=== PATIENT | female | born 1940 | race Caucasian/White ===

== ENCOUNTER 2016-04-27 15:42 | Observation (INO) | payer MEDICARE ==
[~2016-04-27] VITALS: Ht 167.6 cm; Wt 50.0 kg
[~2016-04-27 15:42] MED LIST: AMIO0.1T PO; APIX5TAB PO; LEVO500T3 PO; LEVO75TA3 PO; LOSA50TA PO; PRED10 PO; UMEC1AER INH
[2016-04-27 15:44] VITALS: BP 155/72; PULSE 100; RESP 18; TEMP 98.2; O2SAT 90
[2016-04-27 16:58] VITALS: BP 141/76; PULSE 83; RESP 16; O2SAT 96
[2016-04-27 17:06] VITALS: O2SAT 89
[2016-04-27 17:07] VITALS: O2SAT 95
[2016-04-27] MEDS ORDERED: SODIUM CHLORIDE 0.9% FLUSH 5 ML FLUSH IVF PRN (17:15)
--- NOTE | 2016-04-27 17:20 | PD ---
HPI Chief Complaint: Respiratory Distress Time Seen by Provider: 17:17 Travel History International Travel<30 days: No Contact w/Intl Traveler<30days: No Traveled to known affect area: No History of Present Illness HPI 75-year-old female with previous history of A. fib currently on Eliquis, COPD, presents to the ER today sent in by Dr. lewis because of several weeks' history of coughing and shortness of breath previously treated as COPD, being sent in by Dr. Lewis for evaluation for possible CHF. Patient denies any fevers or any other symptoms. Modifying Factors: None Associated Signs & Symptoms: Coughing and shortness of breath for several weeks , evaluation for CHF Risk Factors: None PFSH Past Medical History Hx Anticoagulant Therapy: Yes Arthritis: No Asthma: Yes Atrial Fibrillation: Yes Autoimmune Disease: No Blood Disorders: No Anxiety: No Depression: No Heart Rhythm Problems: Yes (new onset a-fib) Cancer: Yes (BREAST) Cardiovascular Problems: Yes High Cholesterol: No Chemotherapy: No Chest Pain: No Congestive Heart Failure: Yes COPD: Yes Cerebrovascular Accident: No Diabetes: No Diminished Hearing: No Endocrine: No GERD: No Glaucoma: No Genitourinary: No Headaches: No Hepatitis: No Hiatal Hernia: No Hypertension: No Immune Disorder: No Kidney Stones: No Musculoskeletal: No Neurologic: No Psychiatric: No Reproductive: No Respiratory: Yes Migraines: No Myocardial Infarction: No Radiation Therapy: No Renal Failure: No Seizures: No Sickle Cell Disease: No Sleep Apnea: No Thyroid Disease: No Ulcer: No Tetanus Vaccination: Unknown Influenza Vaccination: Yes ?: Not Dilation and Curettage (D&C): Yes (x2) Past Surgical History Abdominal Surgery: No AICD: No Appendectomy: No Arteriovenous Shunt: No Cardiac Surgery: No Cholecystectomy: No Ear Surgery: No Endocrine Surgery: No Eye Surgery: No Genitourinary Surgery: No Gynecologic Surgery: Yes Insulin Pump: No Joint Replacement: No Oral Surgery: No Pacemaker: No Thoracic Surgery: No Tonsillectomy: Yes Other Surgery: Yes (L MASTECTOMY 2012) Social History Alcohol Use: Yes (SCOTCH DAILY x 48 YEARS) Tobacco Use: No Substance Use: No Allergies-Medications (Allergen,Severity, Reaction): Coded Allergies: Penicillin (Verified Allergy, Severe, EDEMA/SWEELING, 04/27/16) Uncoded Allergies: SEASONAL (Allergy, Mild, 09/06/08) Reported Meds & Prescriptions Reported Meds & Active Scripts Active Reported Ventolin Hfa 18 GM Inh (Albuterol Sulfate) 90 Mcg/Act Aer 1 Puff INH Q4H PRN Levothyroxine (Levothyroxine Sodium) 50 Mcg Tab 50 Mcg PO DAILY Losartan (Losartan Potassium) 50 Mg Tab 50 Mg PO DAILY Eliquis (Apixaban) 5 Mg Tab 5 Mg PO BID Amiodarone (Amiodarone HCl) 100 Mg Tab 100 Mg PO DAILY Anoro Ellipta Inh (Umeclidinium/Vilanterol) 62.5-25 Mcg/Act Aero 1 Puff INH Q4 Review of Systems Except as stated in HPI: all other systems reviewed are Neg Physical Exam Narrative GENERAL: Well-nourished, well-developed pleasant elderly white female patient in no acute distress. SKIN: Warm and dry. HEAD: Normocephalic. EYES: No scleral icterus. No injection or drainage. NECK: Supple, trachea midline. CARDIOVASCULAR: Regular rate and rhythm without murmurs, gallops, or rubs. RESPIRATORY: Breath sounds equal but decreased throughout bilaterally. No accessory muscle use. GASTROINTESTINAL: Abdomen soft, non-tender, nondistended. MUSCULOSKELETAL: No cyanosis, or edema. BACK: Nontender without obvious deformity. No CVA tenderness. Data Data Last Documented VS Vital Signs Date Time Temp Pulse Resp B/P Pulse Ox O2 Delivery O2 Flow Rate FiO2 04/27/16 17:07 95 Nasal Cannula 2 04/27/16 16:59 79 17 04/27/16 16:58 141/76 04/27/16 15:44 98.2 Orders Electrocardiogram (04/27/16 ) Complete Blood Count With Diff (04/27/16 17:01) Comprehensive Metabolic Panel (04/27/16 17:01) B-Type Natriuretic Peptide (04/27/16 17:01) Act Partial Throm Time (Ptt) (04/27/16 17:01) Prothrombin Time / Inr (Pt) (04/27/16 17:01) Ckmb (Isoenzyme) Profile (04/27/16 17:01) Troponin I (04/27/16 17:01) Iv Access Insert/Monitor (04/27/16 17:01) Ecg Monitoring (04/27/16 17:01) Oximetry (04/27/16 17:01) Oxygen Administration (04/27/16 17:01) Chest, Single Ap (04/27/16 17:01) Sodium Chloride 0.9% Flush (Ns Flush) (04/27/16 17:15) D-Dimer (04/27/16 17:20) Furosemide Inj (Lasix Inj) (04/27/16 18:45) Admit Order (Ed Use Only) (04/27/16 19:10) Labs Laboratory Tests Test 04/27/16 17:20 White Blood Count 5.9 TH/MM3 Red Blood Count 4.51 MIL/MM3 Hemoglobin 13.5 GM/DL Hematocrit 40.5 % Mean Corpuscular Volume 89.8 FL Mean Corpuscular Hemoglobin 29.9 PG Mean Corpuscular Hemoglobin 33.3 % Concent Red Cell Distribution Width 16.7 % Platelet Count 261 TH/MM3 Mean Platelet Volume 8.5 FL Neutrophils (%) (Auto) 81.1 % Lymphocytes (%) (Auto) 11.7 % Monocytes (%) (Auto) 6.7 % Eosinophils (%) (Auto) 0.0 % Basophils (%) (Auto) 0.5 % Neutrophils # (Auto) 4.8 TH/MM3 Lymphocytes # (Auto) 0.7 TH/MM3 Monocytes # (Auto) 0.4 TH/MM3 Eosinophils # (Auto) 0.0 TH/MM3 Basophils # (Auto) 0.0 TH/MM3 CBC Comment DIFF FINAL Differential Comment Prothrombin Time 12.0 SEC Prothromb Time International 1.1 RATIO Ratio Activated Partial 29.5 SEC Thromboplast Time D-Dimer Quantitative (PE/DVT) 0.21 MG/L FEU Sodium Level 141 MEQ/L Potassium Level 4.2 MEQ/L Chloride Level 105 MEQ/L Carbon Dioxide Level 27.6 MEQ/L Anion Gap 8 MEQ/L Blood Urea Nitrogen 15 MG/DL Creatinine 0.81 MG/DL Estimat Glomerular Filtration 69 ML/MIN Rate Random Glucose 136 MG/DL Calcium Level 8.6 MG/DL Total Bilirubin 1.1 MG/DL Aspartate Amino Transf 15 U/L (AST/SGOT) Alanine Aminotransferase 30 U/L (ALT/SGPT) Alkaline Phosphatase 73 U/L Total Creatine Kinase 31 U/L Troponin I 0.02 NG/ML B-Type Natriuretic Peptide 604 PG/ML Total Protein 6.4 GM/DL Albumin 3.1 GM/DL MDM Medical Decision Making Medical Screen Exam Complete: Yes Emergency Medical Condition: Yes Medical Record Reviewed: Yes Interpretation(s) EKG shows A. fib at a rate of 85 bpm with no signs of acute ST-T changes. Laboratory Tests Test 04/27/16 17:20 Neutrophils (%) (Auto) 81.1 % (16.0-70.0) Lymphocytes # (Auto) 0.7 TH/MM3 (1.0-4.8) Prothrombin Time 12.0 SEC (9.8-11.6) Estimat Glomerular Filtration 69 ML/MIN (>89) Rate Random Glucose 136 MG/DL (74-106) Total Bilirubin 1.1 MG/DL (0.2-1.0) B-Type Natriuretic Peptide 604 PG/ML (0-100) Albumin 3.1 GM/DL (3.4-5.0) Last 24 hours Impressions Chest X-Ray 04/27/16 1701 Signed Impressions: Service Date/Time: Wednesday, April 27, 2016 17:03 - CONCLUSION: 1. Small left pleural effusion and a tiny right pleural effusion. 2. Bibasilar patchiness consistent with atelectasis, scarring and/or mild infiltrates. 3. Mild cardiomegaly. 4. Degenerative changes and scoliosis of the thoracolumbar spine. Abraham Corbett MD Differential Diagnosis Coughing, shortness of breathCOPD exacerbation versus pneumonia versus CHF Narrative Course Chest x-ray shows signs of CHF and BNP is elevated. Patient was given Lasix in the ER. Case was discussed with Dr. Driscoll for admission for further treatment here Diagnosis Primary Impression: New onset of congestive heart failure Admitting Information Admitting Physician Requests: it Gosia Reid MD Apr 27, 2016 17:19
--- NOTE | 2016-04-27 17:28 | RADRPT ---
EXAM DATE/TIME: 04/27/2016 17:03 [facility] COMPARISON: CHEST PA & LAT, March 28, 2016, 12:22. INDICATIONS : Shortness of breath. MEDICAL HISTORY : Atrial fibrillation. Asthma. SURGICAL HISTORY : Mastectomy, bilateral. ENCOUNTER: Initial ACUITY: 1 day PAIN SCORE: 0/10 LOCATION: Bilateral chest FINDINGS: There is a small left pleural effusion and a tiny right pleural effusion. Bibasilar patchiness is no theresa consistent with atelectasis, scarring and/or mild infiltrates. The heart is mildly prominent. D egenerative changes and scoliosis of the thoracolumbar spine are noted. CONCLUSION: 1. Small left pleural effusion and a tiny right pleural effusion. 2. Bibasilar patchiness consistent with atelectasis, scarring and/or mild infiltrates. 3. Mild cardiomegaly. 4. Degenerative changes and scoliosis of the thoracolumbar spine. Abraham Corbett MD on April 27, 2016 at 17:19 Board Certified Radiologist. This report was verified electronically.
[2016-04-27 17:33] LABS: AUTOMATED NEUTROPHIL # 4.8 TH/MM3 (1.8-7.7); BASOPHIL % 0.5 % (0.0-2.0); HEMATOCRIT 40.5 % (35.0-46.0); HEMO FLAGS DIFF FINAL; LYMPH % 11.7 % (9.0-44.0); LYMPHOCYTE # 0.7 TH/MM3 (1.0-4.8); MEAN CELL VOLUME 89.8 FL (80.0-100.0); MEAN CORPUSCULAR HEMOGLOBIN 29.9 PG (27.0-34.0); MEAN CORPUSCULAR HGB CONC 33.3 % (32.0-36.0); MONO % 6.7 % (0.0-8.0); NEUT % 81.1 % (16.0-70.0); PLATELET COUNT 261 TH/MM3 (150-450); RED BLOOD COUNT 4.51 MIL/MM3 (4.00-5.30); RED CELL DISTRIBUTION WIDTH 16.7 % (11.6-17.2); WHITE BLOOD COUNT 5.9 TH/MM3 (4.0-11.0)
[2016-04-27 17:44] LABS: APTT (PATIENT) 29.5 SEC (24.3-30.1); INTERNATIONAL NORMALIZED RATIO 1.1 RATIO
[2016-04-27] MEDS ORDERED: VENTAER INH (17:46)
[2016-04-27] MEDS ORDERED: LEVO50TA4 PO (17:46)
[2016-04-27 18:02] LABS: ANION GAP 8 MEQ/L (5-15); AST (GOT) 15 U/L (15-37); BICARBONATE 27.6 MEQ/L (21.0-32.0); BLOOD UREA NITROGEN 15 MG/DL (7-18); CHLORIDE 105 MEQ/L (98-107); GLOMERULAR FILTRATION RATE 69 ML/MIN (>89); POTASSIUM 4.2 MEQ/L (3.5-5.1); SODIUM (NA) 141 MEQ/L (136-145)
[2016-04-27 18:25] LABS: ALKALINE PHOSPHATASE 73 U/L (45-117); ALT (GPT) 30 U/L (10-53); CREATINE KINASE 31 U/L (26-192); TOTAL BILIRUBIN ADULT 1.1 MG/DL (0.2-1.0)
[2016-04-27] MEDS ORDERED: FUROSEMIDE 40 MG/4 ML VIAL IV PUSH ONE (18:45)
[2016-04-27] MEDS ORDERED: NALOXONE HCL 0.4 MG/ML AMP IV PRN (19:30)
[2016-04-27] MEDS ORDERED: SODIUM CHLORIDE 0.9% FLUSH 5 ML FLUSH FLUSH PRN (19:30)
[2016-04-27] MEDS ORDERED: RESP: ALBUTEROL 2.5 MG/IPRATROPIUM 0.5 MG NEB (PRN) NEB (19:45)
[2016-04-27 20:08] VITALS: BP 131/104; PULSE 79; RESP 18; O2SAT 96
[2016-04-27] MEDS: SODIUM CHLORIDE 0.9% FLUSH 5 ML FLUSH FLUSH SCH (21:05)
[2016-04-27 21:55] VITALS: BP 154/78; PULSE 87; RESP 21; TEMP 98.4; O2SAT 97
--- NOTE | 2016-04-27 23:19 | HHI.HP ---
[facility] Valdemar Kinney M.D. Admission Diagnosis CHF exacerbation Diagnoses: (1) Shortness of breath (2) CHF (congestive heart failure) (3) COPD exacerbation Chief Complaint: Shortness of breath x 5 weeks, cough x 3 weeks; not improving despite treatment Travel History International Travel<30 Days: No Contact w/Intl Traveler <30 Da: No Traveled to Known Affected Are: No History of Present Illness Mrs. Alvarez is a 75 year-old female with a past medical history of COPD, hypothyroidism, hypertension, atrial fibrillation on Eliquis, asthma and breast CA who presents to the ER on advice of pharmaceutical service representative Dr. Lewis for shortness of breath and cough for evaluation of possible CHF. Chest x-ray shows small left pleural effusion and a tiny right pleural effusion. Bibasilar patchiness consistent with atelectasis, scarring and/or mild infiltrates. Mild cardiomegaly. Degenerative changes and scoliosis of the thoracolumbar spine. BNP is elevated at 604. D-dimer within normal parameters at 0.21. The patient is seen in the CDU. She states that she's been experiencing shortness of breath for 5 weeks and minimally productive cough with very little phlegm over the past 3 weeks. She denies any pink sputum or fever. She states that she has taken Mucinex and Robitussin as prescribed by her pharmaceutical service representative Dr. Lewis with no improvement in symptoms. She has also taken prednisone as an outpatient and 2 rounds of antibiotics with the last one occurring around April 06 or . She's been using her albuterol nebulizer every 4 hours, again, with no improvement in symptoms. She states that she developed ankle swelling yesterday that has resolved with Lasix given in ER and has also been experiencing orthopnea and paroxysmal nocturnal dyspnea. She states that Dr. Kidd is her lay out and detail drafter and he is doing echocardiograms every 6 months for "leaky valve". She denies any history of congestive heart failure, hypertension , cardiac stents, diabetes mellitus, liver or kidney problems, DVT, CVA, PE, seizures. She does acknowledge history of thyroid dysfunction. She denies being placed on Lasix or any "water pills". She reports increased urine output since receiving Lasix in the ER. Her most recent pulmonary function test in her EMR was 10/15/2014 and revealed moderately severe obstructive ventilatory defect with hyperinflation and reduction in diffusion consistent with emphysema and some improvement noted post bronchodilator. Airway resistance is increased on this study. EF is noted at 72% on echocardiogram in EMR from 2008 with small hemodynamically insignificant pericardial effusion, mild left atrial enlargement, mild mitral regurgitation, mild tricuspid regurgitation. . Review of Systems Constitutional: COMPLAINS OF: Fatigue, DENIES: Fever Respiratory: COMPLAINS OF: Cough, Sputum production (minimal), Shortness of breath, DENIES: Hemoptysis Cardiovascular: COMPLAINS OF: Dyspnea on Exertion, PND, Lower Extremity Edema Neurologic: DENIES: Localized weakness, Seizures Other All other systems are reviewed and are otherwise negative . Past Family Social History Past Medical History COPD Atrial fibrillation Asthma Breast CA left mastectomy 2012 Hypothyroidism Hypertension . Past Surgical History D&C x 2 Left mastectomy 2013 Tonsillectomy . Reported Medications Reported Meds & Active Scripts Active Reported Ventolin Hfa 18 GM Inh (Albuterol Sulfate) 90 Mcg/Act Aer 1 Puff INH Q4H PRN Levothyroxine (Levothyroxine Sodium) 50 Mcg Tab 50 Mcg PO DAILY Losartan (Losartan Potassium) 50 Mg Tab 50 Mg PO DAILY Eliquis (Apixaban) 5 Mg Tab 5 Mg PO BID Amiodarone (Amiodarone HCl) 100 Mg Tab 100 Mg PO DAILY Anoro Ellipta Inh (Umeclidinium/Vilanterol) 62.5-25 Mcg/Act Aero 1 Puff INH Q4 Allergies: Coded Allergies: Penicillin (Verified Allergy, Severe, EDEMA/SWEELING, 04/27/16) Uncoded Allergies: SEASONAL (Allergy, Mild, 09/06/08) Active Ordered Medications Current Medications IV Flush (NS Flush) 2 ml UNSCH PRN IVF FLUSH AFTER USING IV ACCESS; Start at 17:15; Stop 04/27/16 at 19:49; Status DC Furosemide (Lasix Inj) 40 mg ONCE ONCE IV PUSH Last administered on 04/27/16t 20:07; Start 04/27/16 at 18:45; Stop 04/27/16 at 18:46; Status DC IV Flush (NS Flush) 2 ml UNSCH PRN FLUSH FLUSH AFTER USING IV ACCESS; Start 04/27/16 at 19:30 IV Flush (NS Flush) 2 ml BID FLUSH Last administered on 04/27/16t 21:05; Start 04/27/16 at 21:00 Naloxone HCl (Narcan Inj) 0.4 mg UNSCH PRN IV SEE LABEL COMMENTS; Start at 19:30 Albuterol/ Ipratropium (Duoneb Neb) 1 ampule Q4HR NEB PRN NEB dyspnea; Start at 19:45 . Family History Father with emphysema Mother in 50's; cause unknown to patient Social History Alcohol: occasional Tobacco: quit smoking age 32 y/o . Physical Exam Vital Signs Vital Signs Date Time Temp Pulse Resp B/P Pulse Ox O2 Delivery O2 Flow Rate FiO2 04/27/16 21:55 98.4 87 21 154/78 97 04/27/16 20:08 79 18 131/104 96 Nasal Cannula 2 04/27/16 17:07 95 Nasal Cannula 2 04/27/16 17:06 89 Room Air 04/27/16 16:59 79 17 95 Nasal Cannula 2 04/27/16 16:58 83 16 141/76 96 Room Air 04/27/16 15:44 98.2 100 18 155/72 90 Room Air Physical Exam GENERAL: This is a pleasant elderly female patient, in no apparent distress. SKIN: No rashes or lesions. Cool and dry. Some bruising on right marcano. HEAD: Atraumatic. Normocephalic. EYES: No scleral icterus. No injection or drainage. ENT: Nose without bleeding, purulent drainage. NECK: Trachea midline. No JVD or lymphadenopathy. CARDIOVASCULAR: Regular rate and rhythm without murmurs, gallops, or rubs. RESPIRATORY: Clear to auscultation. Breath sounds equal bilaterally. No wheezes , rales, or rhonchi. GASTROINTESTINAL: Abdomen soft, non-tender, nondistended. No guarding. MUSCULOSKELETAL: Extremities without clubbing, cyanosis, or edema. No calf tenderness. NEUROLOGICAL: Awake and alert. Motor and sensory grossly within normal limits. Normal speech. . Laboratory Laboratory Tests Test 04/27/16 17:20 White Blood Count 5.9 Red Blood Count 4.51 Hemoglobin 13.5 Hematocrit 40.5 Mean Corpuscular Volume 89.8 Mean Corpuscular Hemoglobin 29.9 Mean Corpuscular Hemoglobin 33.3 Concent Red Cell Distribution Width 16.7 Platelet Count 261 Mean Platelet Volume 8.5 Neutrophils (%) (Auto) 81.1 Lymphocytes (%) (Auto) 11.7 Monocytes (%) (Auto) 6.7 Eosinophils (%) (Auto) 0.0 Basophils (%) (Auto) 0.5 Neutrophils # (Auto) 4.8 Lymphocytes # (Auto) 0.7 Monocytes # (Auto) 0.4 Eosinophils # (Auto) 0.0 Basophils # (Auto) 0.0 CBC Comment DIFF FINAL Differential Comment Prothrombin Time 12.0 Prothromb Time International 1.1 Ratio Activated Partial 29.5 Thromboplast Time D-Dimer Quantitative (PE/DVT) 0.21 Sodium Level 141 Potassium Level 4.2 Chloride Level 105 Carbon Dioxide Level 27.6 Anion Gap 8 Blood Urea Nitrogen 15 Creatinine 0.81 Estimat Glomerular Filtration 69 Rate Random Glucose 136 Calcium Level 8.6 Total Bilirubin 1.1 Aspartate Amino Transf 15 (AST/SGOT) Alanine Aminotransferase 30 (ALT/SGPT) Alkaline Phosphatase 73 Total Creatine Kinase 31 Troponin I 0.02 B-Type Natriuretic Peptide 604 Total Protein 6.4 Albumin 3.1 Result Diagram: 04/27/16 1720 04/27/16 1720 Imaging Last Impressions Chest X-Ray 04/27/16 1701 Signed Impressions: Service Date/Time: Wednesday, April 27, 2016 17:03 - CONCLUSION: 1. Small left pleural effusion and a tiny right pleural effusion. 2. Bibasilar patchiness consistent with atelectasis, scarring and/or mild infiltrates. 3. Mild cardiomegaly. 4. Degenerative changes and scoliosis of the thoracolumbar spine. Abraham Corbett MD . Assessment and Plan Problem List: (1) Shortness of breath ICD Code: R06.02 Status: Acute (2) CHF (congestive heart failure) ICD Code: I50.9 Status: Acute (3) COPD exacerbation ICD Code: J44.1 Status: Acute Assessment and Plan Mrs. Alvarez is a 75 year-old female with a past medical history of COPD, hypothyroidism, hypertension, atrial fibrillation on Eliquis, asthma and breast CA who presents to the ER on advice of pharmaceutical service representative Dr. Lewis for shortness of breath and cough for evaluation of possible CHF. Chest x-ray shows small left pleural effusion and a tiny right pleural effusion. Bibasilar patchiness consistent with atelectasis, scarring and/or mild infiltrates. Mild cardiomegaly. Degenerative changes and scoliosis of the thoracolumbar spine. BNP is elevated at 604. D-dimer within normal parameters at 0.21. Shortness of breath - COPD exacerbation vs CHF vs valvular heart disease vs amiodarone induced pulmonary fibrosis vs pneumonia - Consult patient's lay out and detail drafter Dr. Kidd - Consult patient's pharmaceutical service representative Dr. Lewis - 2 D echocardiogram to assess heart structure and function - Rule out ACS with serial cardiac enzymes and EKGs - Continuous cardiac telemetry - Heart healthy diet - Strict I and Os - Vital signs q4h - PT to maintain strength COPD - Duonebulizers q4h PRN dyspnea - Continue home COPD medications DVT prophylaxis - continue home Eliquis Written by Christie Barrera, acting as scribe for Dr. Driscoll on 04/27/16 at 22:45. The documentation accurately reflects the work performed [id number] by me on at 2245 Discussed Condition With patient and ER physician Problem Qualifiers (1) CHF (congestive heart failure): Qualified Code: I50.33 - Acute on chronic diastolic congestive heart failure Christie Barrera Apr 27, 2016 23:18 Abe Driscoll MD Apr 30, 2016 08:18
[2016-04-28] VITALS (8 sets, daily range): BP systolic 129–173; BP diastolic 61–87; PULSE 65–87; RESP 18–22; TEMP 97.3–98.7; O2SAT 92–98
[2016-04-28 05:47] LABS: AUTOMATED NEUTROPHIL # 3.5 TH/MM3 (1.8-7.7); BASOPHIL # 0.1 TH/MM3 (0-0.2); BASOPHIL % 1.2 % (0.0-2.0); EOSINOPHIL # 0.1 TH/MM3 (0-0.4); EOSINOPHIL % 1.2 % (0.0-4.0); HEMATOCRIT 38.5 % (35.0-46.0); HEMO FLAGS DIFF FINAL; LYMPH % 19.8 % (9.0-44.0); MEAN CELL VOLUME 89.2 FL (80.0-100.0); MEAN CORPUSCULAR HEMOGLOBIN 29.9 PG (27.0-34.0); MEAN CORPUSCULAR HGB CONC 33.5 % (32.0-36.0); MONO % 11.5 % (0.0-8.0); NEUT % 66.3 % (16.0-70.0); PLATELET COUNT 242 TH/MM3 (150-450); RED BLOOD COUNT 4.32 MIL/MM3 (4.00-5.30); RED CELL DISTRIBUTION WIDTH 16.4 % (11.6-17.2); WHITE BLOOD COUNT 5.2 TH/MM3 (4.0-11.0)
[2016-04-28 06:19] LABS: BICARBONATE 33.3 MEQ/L (21.0-32.0); POTASSIUM 3.7 MEQ/L (3.5-5.1)
[2016-04-28] MEDS: LEVOTHYROXINE SODIUM 50 MCG TAB PO SCH (06:38)
[2016-04-28] MEDS ORDERED: ALUMINUM/MAGNESIUM/SIMETH 30 ML CUP PO PRN (08:30)
[2016-04-28] MEDS ORDERED: CALCIUM CARBONATE 500 MG CHEWABLE TAB CHEW PRN (08:30)
[2016-04-28] MEDS ORDERED: DOCUSATE SODIUM 50 MG/SENNA 8.6 MG TAB PO PRN (08:30)
[2016-04-28] MEDS ORDERED: MAGNESIUM HYDROXIDE SUSP 30 ML CUP PO PRN (08:30)
[2016-04-28] MEDS ORDERED: DOCUSATE SODIUM 100 MG CAP PO PRN (08:30)
[2016-04-28] MEDS ORDERED: ACETAMINOPHEN 325 MG TAB PO PRN (08:30)
[2016-04-28] MEDS ORDERED: ONDANSETRON HCL 4 MG/2 ML VIAL IV PRN (08:30)
[2016-04-28] MEDS ORDERED: AMIODARONE 200 MG TAB PO SCH (09:00)
[2016-04-28] MEDS: LOSARTAN 50 MG TAB PO SCH (09:10)
[2016-04-28] MEDS: UMECLIDINIUM 62.5 MCG/VILANTEROL 25 MCG INHALER INH SCH (09:10)
[2016-04-28] MEDS: APIXABAN 5 MG TABLET PO SCH ×2 (09:10→22:10)
[2016-04-28] MEDS: SODIUM CHLORIDE 0.9% FLUSH 5 ML FLUSH FLUSH SCH ×2 (09:10→22:10)
--- NOTE | 2016-04-28 10:57 | HHI.PR ---
Subjective Remarks Follow up for SOB with COPD vs CHF. The patient reports her breathing is slightly better today however still short of breath, worse with any exertion. Denies any chest pains. Denies orthopnea, weight gain. Lower extremity edema improved overnight. O2 sat overnight 92-98% on 2L NC, she does not wear oxygen at home. She has no other medical complaints at this time. Objective Vitals Vital Signs Date Time Temp Pulse Resp B/P Pulse Ox O2 Delivery O2 Flow Rate FiO2 04/28/16 08:18 97.3 69 22 129/61 92 04/28/16 04:12 65 04/28/16 01:16 98.7 77 21 141/67 98 04/27/16 21:55 98.4 87 21 154/78 97 04/27/16 20:08 79 18 131/104 96 Nasal Cannula 2 04/27/16 17:07 95 Nasal Cannula 2 04/27/16 17:07 95 Nasal Cannula 2.00 04/27/16 17:06 89 Room Air 04/27/16 16:59 79 17 95 Nasal Cannula 2 04/27/16 16:58 83 16 141/76 96 Room Air 04/27/16 15:44 98.2 100 18 155/72 90 Room Air I/O 04/27/16 04/27/16 04/27/16 04/28/16 04/28/16 04/28/16 07:00 15:00 23:00 07:00 15:00 23:00 Intake Total 0 ml Balance 0 ml Intake Oral 0 ml # Voids 2 Result Diagram: 04/28/16 0527 04/28/16 0527 Imaging Last Impressions Chest X-Ray 04/27/16 1701 Signed Impressions: Service Date/Time: Wednesday, April 27, 2016 17:03 - CONCLUSION: 1. Small left pleural effusion and a tiny right pleural effusion. 2. Bibasilar patchiness consistent with atelectasis, scarring and/or mild infiltrates. 3. Mild cardiomegaly. 4. Degenerative changes and scoliosis of the thoracolumbar spine. Abraham Corbett MD Objective Remarks GENERAL: Well-nourished, well-developed pleasant elderly female patient in [facility]. SKIN: Warm and dry. No rash. HEAD: Normocephalic. Atraumatic. EYES: Pupils equal and round. No scleral icterus. No injection or drainage. ENT: No nasal bleeding or discharge. Mucous membranes pink and moist. NECK: Supple. Trachea midline. CARDIOVASCULAR: Regular rate and rhythm. S1, S2 noted. No murmur appreciated. RESPIRATORY: No accessory muscle use. Clear to auscultation. Breath sounds equal bilaterally. GASTROINTESTINAL: Abdomen soft, non-tender, nondistended. Normoactive bowel sounds x4. MUSCULOSKELETAL: No obvious deformities. Extremities without clubbing, cyanosis , or edema. NEUROLOGICAL: Awake and alert. No obvious cranial nerve deficits. Motor grossly within normal limits. Normal speech. PSYCHIATRIC: Appropriate mood and affect; insight and judgment normal. Medications and IVs Current Medications Medications (Trade) Dose Ordered Sig/Adán Route Start Time Stop Time Status Last Admin (NS Flush) 2 ml UNSCH PRN FLUSH 04/27/16 19:30 (NS Flush) 2 ml BID FLUSH 04/27/16 21:00 04/28/16 09:10 (Narcan Inj) 0.4 mg UNSCH PRN IV 04/27/16 19:30 (Cordarone) 100 mg DAILY PO 04/28/16 09:00 04/28/16 09:10 (Eliquis) 5 mg BID PO 04/28/16 09:00 04/28/16 09:10 (Synthroid) 50 mcg DAILY@06 PO 04/28/16 06:00 04/28/16 06:38 (Cozaar) 50 mg DAILY PO 04/28/16 09:00 04/28/16 09:10 (Tylenol) 650 mg Q4H PRN PO 04/28/16 08:30 (Zofran Inj) 4 mg Q6H PRN IV 04/28/16 08:30 (Colace) 100 mg BID PRN PO 04/28/16 08:30 (Annia-Colace) 1 tab BID PRN PO 04/28/16 08:30 (Milk Of Magnesia Liq) 30 ml DAILY PRN PO 04/28/16 08:30 (Mag-Al Plus Susp Liq) 30 ml Q6H PRN PO 04/28/16 08:30 (Tums Chew) 1,000 mg TID PRN CHEW 04/28/16 08:30 Urinary Catheter: No Vascular Central Line Catheter: No A/P Problem List: (1) Shortness of breath ICD Code: R06.02 Status: Acute (2) CHF (congestive heart failure) ICD Code: I50.9 Status: Acute (3) COPD exacerbation ICD Code: J44.1 Status: Acute Assessment and Plan 75 year-old female with a PMH of COPD, hypothyroidism, HTN, atrial fibrillation on Eliquis, asthma and breast CA who presents to the ER on advice of assembler garment form Dr. Lewis for SOB and cough for evaluation of possible CHF. Dyspnea, Failed Outpatient - suspect COPD exacerbation vs CHF vs valvular heart disease vs amiodarone induced pulmonary fibrosis vs pneumonia -CXR images reviewed by me, shows small left pleural effusion and a tiny right pleural effusion. Bibasilar patchiness consistent with atelectasis, scarring and/or mild infiltrates. -BNP is elevated at 604. D-dimer wnl. -2 D echocardiogram ordered -ACS ruled out with negative serial cardiac enzymes and EKGs without acute ST changes -Monitor on cardiac telemetry, Heart healthy diet, Strict I and Os -Consult patient's ladler Dr. Kidd -Consult patient's assembler garment form Dr. Lewis COPD Exacerbation, Failed Outpatient: Ipratropium neb tid adán. Duonebs q4h PRN dyspnea. Continue Ellipta. Atrial Fibrillation: chronic, rate controlled. Continue patient's amiodarone and Eliquis HTN: chronic, BP fairly well controlled. Continue patient's Losartan. Hypothyroidism: chronic, continue patient's levothyroxine. DVT prophylaxis- on Eliquis Written by Francine Bernal, acting as scribe for Dr. Houston on 04/28/16 at 09: 10. The documentation accurately reflects the work performed [id number] by me on at 0910 Francine Bernal PA-C Apr 28, 2016 10:57 Cornelius Houston MD Apr 28, 2016 13:43
[2016-04-28] MEDS: RESP: IPRATROPIUM 0.5 MG/2.5 ML NEB NEB SCH ×2 (13:36→19:50)
--- NOTE | 2016-04-28 14:22 | EC ---
Study Study Date:04/28/2016 STUDY CONCLUSIONS SUMMARY - Left ventricle: The cavity size was normal. Wall thickness was normal. Systolic function was normal. The estimated ejection fraction was in the range of 60% to 65%. Wall motion was normal; there were no regional wall motion abnormalities. - Mitral valve: Moderate regurgitation. - Left atrium: The atrium was mildly dilated. - Tricuspid valve: Moderate regurgitation. - Pulmonary arteries: PA peak pressure: 48mm Hg (S). If LV function is below 40, please consider prescribing an ACEI or ARB or document rationale for non-use. PROCEDURE DATA STUDY STATUS: Elective. Procedure: Transthoracic echocardiography. Image quality was good. Scanning was performed from the parasternal, apical, and subcostal acoustic windows. Study completion: The patient tolerated the procedure well. Transthoracic echocardiography. M-mode, complete 2D, complete spectral Doppler, and color Doppler. Patient status: Inpatient. CARDIAC ANATOMY LEFT VENTRICLE: The cavity size was normal. Wall thickness was normal. Systolic function was normal. The estimated ejection fraction was in the range of 60% to 65%. Wall motion was normal; there were no regional wall motion abnormalities. AORTIC VALVE: Trileaflet; normal thickness leaflets. Doppler: Transvalvular velocity was within the normal range. There was no stenosis. Trace to mild regurgitation. AORTA: Aortic root: The aortic root was normal in size. MITRAL VALVE: Mildly thickened leaflets, . Doppler: Transvalvular velocity was within the normal range. There was no evidence for stenosis. Moderate regurgitation. LEFT ATRIUM: The atrium was mildly dilated. RIGHT VENTRICLE: The cavity size was normal. Wall thickness was normal. PULMONIC VALVE: Doppler: Transvalvular velocity was within the normal range. There was no evidence for stenosis. No regurgitation. TRICUSPID VALVE: Structurally normal valve. Doppler: Transvalvular velocity was within the normal range. Moderate regurgitation. PULMONARY ARTERY: The main pulmonary artery was normal-sized. Systolic pressure was within the normal range. RIGHT ATRIUM: The atrium was normal in size. PERICARDIUM: There was no pericardial effusion. SYSTEMIC VEINS: Inferior vena cava: The vessel was normal in size. BASIC MEASUREMENTS ADULT NORMAL Left ventricle LV internal dimension, ED, chordal level, 50.7 mm 43-52 PLAX LV internal dimension, ES, chordal level, 34.1 mm 23-38 PLAX Fractional shortening, chordal level, PLAX 33 % >29 LV posterior wall thickness, ED 8.97 mm IVS/LVPW ratio, ED 1.19 <1.3 Ventricular septum Septal thickness, ED 10.7 mm Aortic valve Leaflet separation 24 mm 15-26 Right ventricle RV internal dimension, ED, PLAX 31.8 mm 19-38 BASIC MEASUREMENTS ADULT NORMAL Aortic valve Leaflet separation 24 mm 15-26 Aorta Root diameter, ED 33 mm 20-37 Left atrium Anterior-posterior dimension, ES *44 mm 19-40 LA/aortic root ratio 1.33 DOPPLER MEASUREMENTS ADULT NORMAL Main pulmonary artery Pressure, S *48 mm Hg =30 Tricuspid valve Regurgitant peak velocity 307 cm/s Peak RV-RA gradient, S 38 mm Hg Maximal regurgitant velocity 307 cm/s Systemic veins Estimated CVP 10 mm Hg Right ventricle RV pressure, S *48 mm Hg <30 LEGEND: Mean values are shown as u=mean value. Asterisk (*) orellana values outside specified normal range. Prepared and signed by Alvarado Jane [id number]
--- NOTE | 2016-04-28 14:41 | EKG ---
Date Performed: 04/28/2016 Time Performed: 05:25:09 PTAGE: 75 years EKG: ATRIAL FIBRILLATION POOR R WAVE PROGRESSION CONSIDER ANTEROLATERAL ISCHEMIA CONSIDER ALIA SEPTAL DE, AGE INDETERMINATE ABNORMAL ECG PREVIOUS TRACING : 04/27/2016 23.28 DOCTOR: Alvarado Jane Interpretating Date/Time 04/28/2016 14:42:04
--- NOTE | 2016-04-28 14:41 | EKG ---
Date Performed: 04/27/2016 Time Performed: 16:55:48 PTAGE: 75 years EKG: ATRIAL FIBRILLATION POSSIBLE RIGHT VENTRICULAR HYPERTROPHY POOR R WAVE PROGRESSION CONSIDER ANTEROLATERAL ISCHEMIA CONSIDER ANTEROSEPTAL SD, AGE INDETERMINATE ABNORMAL ECG PREVIOUS TRACING : 10/10/2012 11.40 DOCTOR: Alvarado Jane Interpretating Date/Time 04/28/2016 14:42:36
--- NOTE | 2016-04-28 14:42 | EKG ---
Date Performed: 04/27/2016 Time Performed: 23:28:42 PTAGE: 75 years EKG: ATRIAL FIBRILLATION POOR R WAVE PROGRESSION CONSIDER ANTEROLATERAL ISCHEMIA CONSIDER ALIA SEPTAL RI, AGE INDETERMINATE ABNORMAL ECG PREVIOUS TRACING : 04/27/2016 16.55 DOCTOR: Alvarado Jane Interpretating Date/Time 04/28/2016 14:42:49
--- NOTE | 2016-04-28 15:19 | MB ---
cc: CCList DATE OF CONSULTATION: 04/28/2016 REASON FOR CONSULTATION: Miss Alvarez is a 75-year-old white female very well-known to me with very severe chronic obstructive pulmonary disease. Over the course of the last several weeks she has had an acute exacerbation and has had to the emergency room visits neither of which revealed evidence of pneumonia or heart failure in each time she received antibiotics, corticosteroids and improved. She was managed with corticosteroids and bronchodilators through the holiday and came back to see me in the office yesterday. At that point she was complaining primarily of exhaustion and dyspnea on exertion. A cough she had previously had resolved and she was not audibly wheezing. She had tapered down and off prednisone. She was profoundly exhausted though and had shortness of breath with minimal exertion. An exam in the office yesterday she had basilar rales and a harsh systolic murmur and seemed to be back in atrial fibrillation. I suspect that she was in heart failure so referred her to the emergency room. On arrival the emergency room she had a chest x-ray which did reveal a small bilateral pleural effusions and some patchy infiltrates, not inconsistent with heart failure. She had no fever and her white blood cell count twice now has been [id number]. Her BNP was very elevated over 600 and this looks as though she was in heart failure possibly related to recurrent atrial fibrillation. PAST MEDICAL HISTORY: Hypertension. Breast cancer with left mastectomy in 2012. Hypothyroidism. ALLERGIES PENICILLIN SEASONAL INHALATION ALLERGIES. SOCIAL HISTORY She is living with her . He is very supportive. Prior smoker, quit years ago. Occasional alcohol. MEDICATIONS Reviewed in the EMR. PHYSICAL EXAMINATION IN GENERAL: Elderly white female, comfortable at rest. VITAL SIGNS: 98 degrees, pulse is 70, respirations 18 and on 2 liters her O2 sat is 96%. HEAD, EYES, EARS, NOSE, AND THROAT: Sclerae anicteric. Mucous membranes are moist. NECK: Neck veins are not distended. They were yesterday. CHEST: The chest is very minimally congested. No audible wheezing. HEART: Heart rate today is regular and her heart sounds are more distinct with a soft systolic murmur. No audible S3. No pitting edema. No cyanosis. RADIOLOGIC: Chest x-ray Noted above. LABORATORY FINDINGS: Liver functions are normal BUN and creatinine are normal. ASSESSMENT AND PLAN: It appears that Mrs. Alvarez was going in the heart failure. She does have a rather harsh systolic murmur as well and maybe mitral regurgitation. She has responded favorably to diuretics and will continue her on aerosolized Atrovent routinely. Dr. Kidd is scheduled to see her for further cardiovascular evaluation. R. MD WILL Briggs/quincy /2:26 PM /3:12 PM MTDD
--- NOTE | 2016-04-28 16:42 | HHI.FF ---
Face to Face Verification Diagnosis: (1) Shortness of breath (2) COPD exacerbation (3) Hypoxia (4) Requires continuous at home supplemental oxygen (5) HTN (hypertension) (6) History of breast cancer Home Health Nursing Order: Medical education Signs/symptoms of disease process Oxygen administration education Nursing assessment with vital signs I have seen patient Cass Alvarez on 04/28/16. My clinical findings support the need for the requested home health care services because: Patient has SOB Deconditioned w/ increased weakness I certify that my clinical findings support that this patient is homebound because: Hx COPD- exertion dyspnea/weakness Unsteady gait/balance Francine Bernal PA-C Apr 28, 2016 16:42 Heike Dawson MD May 01, 2016 20:24
[2016-04-28] MEDS ORDERED: HYDR25TA5 PO (16:43)
[2016-04-28] MEDS ORDERED: AMIO200T PO (16:43)
[2016-04-28] MEDS ORDERED: POTA20TA5 PO (16:43)
[2016-04-28] MEDS ORDERED: OXYGENTANK NAS.CANULA (16:44)
--- NOTE | 2016-04-28 16:47 | HHI.DCPOC ---
Discharge Care Plan Diagnosis: (1) COPD exacerbation (2) Hypoxia (3) Shortness of breath (4) Requires continuous at home supplemental oxygen (5) Mitral regurgitation (6) Tricuspid regurgitation Your Health Problems Are: Shortness of Breath Goals to Promote Your Health * To prevent worsening of your condition and complications * To maintain your health at the optimal level Directions to Meet Your Goals Take your medications as prescribed Follow your dietary instruction Follow activity as directed Keep your appointments as scheduled Take your immunizations and boosters as scheduled If your symptoms worsen call your PCP, if no PCP go to Urgent Care Center or Emergency Room Smoking is Dangerous to Your Health. Avoid second hand smoke Call the 24-hour hour crisis hotline for domestic abuse at Francine Bernal PA-C Apr 28, 2016 16:47
--- NOTE | 2016-04-28 17:59 | MB ---
cc: BRENDAN JARRETT MD DATE OF CONSULTATION 04/28/16 HISTORY OF PRESENT ILLNESS Ms. Alvarez is a 75 year old white female with a history of paroxysmal atrial fibrillation, chronic obstructive pulmonary disease/asthma and hypertension. She has had increased shortness of breath over the last five weeks. She also has had cough and, over the last several days, developed increased shortness of breath and lower extremity edema. She has not had any chest pain. She was given IV furosemide with good response. She is now feeling better with improvement in her shortness of breath and peripheral edema. PAST MEDICAL HISTORY 1. Chronic obstructive pulmonary disease/asthma 2. Paroxysmal atrial fibrillation 3. Breast cancer with breast mastectomy in 2012 4. Hypertension 5. Hypothyroidism 6. History of tonsillectomy 7. Dilation and curettage 8. History of mild to moderate mitral regurgitation and mitral valve prolapse 9. in November 2008 was negative 10. Cardioversion ins 2008 and 2012 MEDICATIONS At home, 1. Inhaler 2. Amiodarone 100 mg a day 3. Eliquis 5 mg twice a day 4. Losartin 50 mg a day 5. Ventolin inhaler ALLERGIES PENICILLIN SOCIAL HISTORY The patient quit smoking in her 30s. She drinks alcohol occasionally. She used to drink significant amount. FAMILY HISTORY Negative for heart disease. REVIEW OF SYSTEMS Otherwise negative PHYSICAL EXAMINATION VITAL SIGNS: Blood pressure 129/61, pulse 69 and irregular. HEENT: Negative, 2+ carotid upstrokes, no bruits. LUNGS: Few bilateral rhonchi. HEART: Irregularly irregular with 1-2/6 systolic murmur at the apex, no gallops or rubs. ABDOMEN: Soft, no bruits. EXTREMITIES: Without edema, 2+ distal pulses. NEUROLOGIC: Grossly nonfocal. CARDIOLOGY STUDIES Electrocardiogram was reviewed and showed atrial fibrillation with controlled ventricular response, right axis, delayed R wave progression in precordial leads and nonspecific T-wave changes. Echocardiogram showed presumed left ventricular systolic function with an ejection fraction of 60-65%, moderate mitral regurgitation, mild left atrial enlargement, moderate tricuspid regurgitation and pulmonary artery pressure of 48 mmHg. LABORATORY DATA Hemoglobin 12.9, potassium 3.7, creatinine 0.9. CK and troponin negative times three. BNP is 604. DIAGNOSES 1. Acute congestive heart failure exacerbation (diastolic dysfunction) 2. Persistent atrial fibrillation with controlled ventricular response. 3. Chronic obstructive pulmonary disease exacerbation 4. Hypertension 5. Hypothyroidism DISPOSITION Ms. Alvarez will continue her current medical program including antiarrhythmic therapy with amiodarone. I recommend to continue by mouth diuretics. Her heart rate is well controlled. Her atrial fibrillation might have contributed to her congestive heart failure exacerbation. We will continue anticoagulation with Eliquis. She will be scheduled for cardioversion if necessary in the near future. She will be reloaded with amiodarone. I will see her back for followup in our office as outpatient after discharge. MD NAYELI Negrete/ /4:01 PM /5:42 PM MTDDigna
[2016-04-28] MEDS: AMIODARONE 200 MG TAB PO SCH (22:10)
[2016-04-29] VITALS (7 sets, daily range): BP systolic 120–134; BP diastolic 62–91; PULSE 69–97; RESP 18–21; TEMP 97–98.7; O2SAT 93–97
[2016-04-29] MEDS: LEVOTHYROXINE SODIUM 50 MCG TAB PO SCH (05:46)
--- NOTE | 2016-04-29 08:40 | HHI.PR ---
Subjective Remarks Follow-up shortness of breath. Shortness of breath was resolved with oxygen, no further complaints. Awaiting arrangement of home O2. Objective Vitals Vital Signs Date Time Temp Pulse Resp B/P Pulse Ox O2 Delivery O2 Flow Rate FiO2 04/29/16 08:27 97.0 70 18 120/62 95 04/29/16 05:16 95 Nasal Cannula 2.00 04/29/16 04:14 98.7 71 21 126/67 97 04/29/16 01:10 69 04/29/16 00:26 98.0 97 21 134/91 93 04/28/16 22:41 98.0 87 19 141/87 98 04/28/16 19:52 95 Nasal Cannula 2.00 04/28/16 16:06 97.6 75 18 141/71 94 I/O 04/28/16 04/28/16 04/28/16 04/29/16 04/29/16 04/29/16 07:00 15:00 23:00 07:00 15:00 23:00 Intake Total 0 ml 420 ml Balance 0 ml 420 ml Intake Oral 0 ml 420 ml # Voids 2 7 Result Diagram: 04/28/16 0527 04/28/16 0527 Imaging Last Impressions Chest X-Ray 04/27/16 1701 Signed Impressions: Service Date/Time: Wednesday, April 27, 2016 17:03 - CONCLUSION: 1. Small left pleural effusion and a tiny right pleural effusion. 2. Bibasilar patchiness consistent with atelectasis, scarring and/or mild infiltrates. 3. Mild cardiomegaly. 4. Degenerative changes and scoliosis of the thoracolumbar spine. Abraham Corbett MD Objective Remarks GENERAL: Well-developed well-nourished. In no acute distress. SKIN: Warm and dry. No lesions noted. HEENT: Normocephalic. Pupils equal and round. Mucous membranes pink and moist. CARDIOVASCULAR: Regular rate and rhythm. No murmur appreciated. RESPIRATORY: No accessory muscle use. Clear to auscultation. Breath sounds equal bilaterally. GASTROINTESTINAL: Abdomen soft, non-tender, nondistended. Bowel sounds x4. MUSCULOSKELETAL: No obvious deformities. No clubbing or cyanosis. No edema. NEUROLOGICAL: Awake and alert. No focal neurological deficits. Moves upper and lower extremities spontaneously. Normal speech. PSYCHIATRIC: Appropriate mood and affect; insight and judgment normal. A/P Problem List: (1) Shortness of breath ICD Code: R06.02 Status: Acute (2) CHF (congestive heart failure) ICD Code: I50.9 Status: Acute (3) COPD exacerbation ICD Code: J44.1 Status: Acute Assessment and Plan 75 year-old female with a PMH of COPD, hypothyroidism, HTN, atrial fibrillation on Eliquis, asthma and breast CA who presents to the ER on advice of resident assistant Dr. Lewis for SOB and cough for evaluation of possible CHF. Dyspnea, Failed Outpatient - secondary to the COPD and CHF as below suspect COPD exacerbation vs CHF vs valvular heart disease vs amiodarone induced pulmonary fibrosis vs pneumonia CXR shows small left pleural effusion and a tiny right pleural effusion. Bibasilar patchiness consistent with atelectasis, scarring and/or mild infiltrates. BNP is elevated at 604. D-dimer wnl. ACS ruled out with negative serial cardiac enzymes and EKGs without acute ST changes -2 D echocardiogram as below -Monitor on cardiac telemetry, Heart healthy diet, Strict I and Os -Consulted patient's dairy scientist Dr. Kidd -Consulted patient's resident assistant Dr. Lewis -Checked oh to walk test, will need home O2, case management arranging Acute diastolic CHF - echocardiogram with normal systolic function, however with moderate MR. -Started on HCTZ with potassium replacement by cardiology COPD Exacerbation, Failed Outpatient: Ipratropium neb tid layla. Duonebs q4h PRN dyspnea. Continue Ellipta. Atrial Fibrillation: chronic, rate controlled. Continue patient's amiodarone and Eliquis HTN: chronic, BP fairly well controlled. Continue patient's Losartan. Hypothyroidism: chronic, continue patient's levothyroxine. DVT prophylaxis- on Eliquis Written by Richard Ribera, acting as scribe for Dr. Houston on 04/29/16 at 08:39. The documentation accurately reflects the work performed [id number] by me on at 0839 Discharge Planning Patient is discharged awaiting arrangement of home O2 Discharge patient to home with [facility] RN Condition on discharge: Improved Heart Healthy Diet as tolerated Regular activity Rx written: amiodarone 200mg po bid, HCTZ 25mg po daily, KCl 20 meq po daily ( all transcribed to [facility] pharmacy) Follow-up with primary care physician, resident assistant Dr. Lewis, and dairy scientist Dr. Kidd Problem Qualifiers (1) CHF (congestive heart failure): Qualified Code: I50.33 - Acute on chronic diastolic congestive heart failure Richard Ribera Apr 29, 2016 08:39 Cornelius Houston MD Apr 29, 2016 15:39
[2016-04-29] MEDS ORDERED: HYDROCHLOROTHIAZIDE 25 MG TAB PO SCH (09:00)
[2016-04-29] MEDS: SODIUM CHLORIDE 0.9% FLUSH 5 ML FLUSH FLUSH SCH (09:00)
[2016-04-29] MEDS ORDERED: POTASSIUM CHLORIDE 20 MEQ CONTROLLED RELEASE TAB PO SCH (09:00)
[2016-04-29] MEDS: LOSARTAN 50 MG TAB PO SCH (09:38)
[2016-04-29] MEDS: AMIODARONE 200 MG TAB PO SCH (09:38)
[2016-04-29] MEDS: APIXABAN 5 MG TABLET PO SCH (09:38)
[2016-04-29] MEDS: UMECLIDINIUM 62.5 MCG/VILANTEROL 25 MCG INHALER INH SCH (09:41)
[2016-04-29] MEDS: RESP: IPRATROPIUM 0.5 MG/2.5 ML NEB NEB SCH (14:00)
== END 2016-04-29 18:48 | disposition home or self-care (01) ==
LOC: NEPC 15:42 → NEDA 19:12 → NEPFCDU 21:27
PROVIDERS: ADMIT Internal Medicine; ATTEND Internal Medicine
DX: J44.1 Chronic obstructive pulmonary disease with (acute) exacerbation (principal); R09.02 Hypoxemia; J45.909 Unspecified asthma, uncomplicated; I50.33 Acute on chronic diastolic (congestive) heart failure; I48.2 Chronic atrial fibrillation; I34.0 Nonrheumatic mitral (valve) insufficiency; I10 Essential (primary) hypertension; E03.9 Hypothyroidism, unspecified; J98.11 Atelectasis; M41.9 Scoliosis, unspecified; Z79.01 Long term (current) use of anticoagulants; Z85.3 Personal history of malignant neoplasm of breast; Z90.10 Acquired absence of unspecified breast and nipple; Z87.891 Personal history of nicotine dependence
CPT/HCPCS: 71010; 80048; 80053; 82550; 83880; 84484; 85025; 85379; 85610; 85730; 93005; 93306; 94620; 94640; 94664; 97163; 99285; G0378; G8987; G8988; J1940; J7644

== ENCOUNTER 2016-05-11 11:01 | Day surgery (SDC) | payer MEDICARE ==
[~2016-05-11 11:01] MED LIST changes: -AMIO0.1T PO; +AMIO200T PO; +HYDR25TA5 PO; -LEVO500T3 PO; +LEVO50TA4 PO; -LEVO75TA3 PO; +OXYGENTANK NAS.CANULA; +POTA20TA5 PO; -PRED10 PO; +PROPOFOL 200 MG/20 ML AMP IV ONE; +VENTAER INH; +ePHEDrine/NS 25 MG/5 ML SYR IV ONE
[2016-05-11] MEDS ORDERED: LEVO75TA3 PO (13:13)
[2016-05-11] MEDS ORDERED: ALBU0.63 NEB (13:13)
[2016-05-11] MEDS ORDERED: HOME OXYGEN NAS.CANULA (13:15)
[2016-05-11] MEDS ORDERED: SODIUM CHLORID 0.9% 500 ML IV SCH (14:00)
[2016-05-11] MEDS ORDERED: LACTATED RINGER'S 1000 ML IV SCH (14:00)
[2016-05-11] MEDS ORDERED: METOPROLOL TARTRATE 25 MG TAB PO PRN (14:30)
[2016-05-11] MEDS ORDERED: INSULIN HUMAN REGULAR 1,000 UNITS/10 ML VIAL SQ PRN (14:30)
--- NOTE | 2016-05-12 17:02 | EKG ---
Date Performed: 05/11/2016 Time Performed: 14:51:06 PTAGE: 75 years EKG: Atrial fibrillation Right axis deviation Lateral infarct - age undetermined Poor R wave pro gression - cannot rule out septal infarct Inferior T wave changes are nonspecific Since previous trac ing, no significant change noted Abnormal ECG PREVIOUS TRACING : 05/11/2016 11.48 DOCTOR: Fabi Cantu Interpretating Date/Time 05/12/2016 17:01:06
--- NOTE | 2016-05-12 17:02 | EKG ---
Date Performed: 05/11/2016 Time Performed: 11:48:30 PTAGE: 75 years EKG: Atrial fibrillation with a controlled ventricular rate. Poor R wave progression Rightward a xis Lateral infarct - age undetermined Possible anteroseptal infarct - age undetermined Possible righ t ventricular hypertrophy Nonspecific ST-T wave changes Since previous tracing, no significant change noted Abnormal ECG PREVIOUS TRACING : 04/28/2016 05.25 DOCTOR: Fabi Cantu Interpretating Date/Time 05/12/2016 17:00:55
--- NOTE | 2016-05-16 14:42 | MR ---
cc: LAKSHMI KIDD MD DATE 05/11/16 INDICATIONS Atrial fibrillation. PROCEDURE PERFORMED DC cardioversion. PROCEDURE After the patient was sedated by Anesthesia, 200 joule biphasic shocks was delivered and converted the patient into sinus rhythm. The patient remained stable and was discharged home in stable condition. DIAGNOSIS Successful cardioversion of atrial fibrillation. DISPOSITION Ms. Alvarez will continue her current medical program including atrial fibrillation and antiarrhythmic therapy with amiodarone. I will see her back for followup in our office after discharge. Lakshmi Kidd MD OQ/EO /2:16 PM /2:38 PM MTDD
== END 2016-05-11 15:00 | disposition home or self-care (01) ==
LOC: HDOC 11:01 → HDIC 11:02 → HDOC 15:00
PROVIDERS: ATTEND Internal Medicine Interventional Cardiology
DX: I48.91 Unspecified atrial fibrillation (principal)
CPT/HCPCS: 92960; 93005